=== PATIENT | female | born 1950 | race Caucasian/White ===

== ENCOUNTER → 2017-04-24 | Outpatient (CLI) | payer OTHER | END | disposition home or self-care (01) | LOC: LAB 09:10 | DX: E55.9 Vitamin D deficiency, unspecified (principal); M85.9 Disorder of bone density and structure, unspecified; E83.42 Hypomagnesemia; E88.89 Other specified metabolic disorders ==

== ENCOUNTER 2017-10-24 08:17 | Outpatient (CLI) | payer OTHER | END 2017-10-24 08:27 | disposition home or self-care (01) | LOC: RAD 08:17 → TOM 09:00 | DX: Z12.31 Encounter for screening mammogram for malignant neoplasm of breast (principal); Z87.898 Personal history of other specified conditions; R92.8 Other abnormal and inconclusive findings on diagnostic imaging of breast; J44.9 Chronic obstructive pulmonary disease, unspecified ==

== ENCOUNTER 2017-11-26 07:37 | Outpatient (CLI) | payer OTHER | END 2017-11-26 08:26 | disposition home or self-care (01) | LOC: LAB 07:37 | DX: E55.9 Vitamin D deficiency, unspecified (principal); M85.9 Disorder of bone density and structure, unspecified; E21.3 Hyperparathyroidism, unspecified; M81.8 Other osteoporosis without current pathological fracture; E56.1 Deficiency of vitamin K; E88.89 Other specified metabolic disorders; E83.42 Hypomagnesemia ==

== ENCOUNTER 2017-11-26 09:15 | Outpatient (CLI) | payer OTHER | END 2017-11-26 09:16 | disposition home or self-care (01) | LOC: SONOGRAMA 09:15 | DX: M25.511 Pain in right shoulder (principal) ==

== ENCOUNTER 2017-12-15 13:04 | Outpatient (CLI) | payer OTHER | END 2017-12-15 14:00 | disposition home or self-care (01) | LOC: NUCLEAR 13:04 | DX: M81.0 Age-related osteoporosis without current pathological fracture (principal) ==

== ENCOUNTER 2017-12-30 12:15 | Outpatient (CLI) | payer OTHER | END 2017-12-30 12:28 | disposition home or self-care (01) | LOC: RAD 501 12:15 | DX: M25.511 Pain in right shoulder (principal) ==

== ENCOUNTER 2018-11-17 10:43 | Outpatient (CLI) | payer OTHER | END 2018-11-17 10:50 | disposition home or self-care (01) | LOC: MAMO-SONO 10:43 | DX: Z12.31 Encounter for screening mammogram for malignant neoplasm of breast (principal); Z87.898 Personal history of other specified conditions; R92.8 Other abnormal and inconclusive findings on diagnostic imaging of breast ==

== ENCOUNTER 2018-11-18 08:49 | Outpatient (CLI) | payer OTHER | END 2018-11-18 08:52 | disposition home or self-care (01) | LOC: LAB 08:49 | DX: E78.49 Other hyperlipidemia (principal) ==

== ENCOUNTER 2019-01-01 10:37 | Outpatient (CLI) | payer OTHER | END 2019-01-01 11:10 | disposition home or self-care (01) | LOC: NUCLEAR 10:37 | DX: M81.0 Age-related osteoporosis without current pathological fracture (principal) ==

== ENCOUNTER 2019-01-26 09:20 | Outpatient (CLI) | payer OTHER | END 2019-01-26 09:26 | disposition home or self-care (01) | LOC: LAB 09:20 | DX: M85.88 Other specified disorders of bone density and structure, other site (principal); E88.89 Other specified metabolic disorders; E56.1 Deficiency of vitamin K; E55.9 Vitamin D deficiency, unspecified ==

== ENCOUNTER → 2019-03-08 | Outpatient (CLI) | payer OTHER | END | disposition home or self-care (01) | LOC: RAD 09:43 | DX: M54.5 Low back pain (principal) ==

== ENCOUNTER 2019-03-15 10:27 | Outpatient (CLI) | payer OTHER | END 2019-03-15 10:31 | disposition home or self-care (01) | LOC: MRI 10:27 | DX: M54.5 Low back pain (principal); M54.6 Pain in thoracic spine | CPT/HCPCS: 72148 ==

== ENCOUNTER 2020-01-03 08:02 | Outpatient (CLI) | payer OTHER | END 2020-01-03 15:00 | disposition home or self-care (01) | LOC: LAB 08:02 | DX: D64.89 Other specified anemias (principal); N39.0 Urinary tract infection, site not specified; E78.49 Other hyperlipidemia; R10.84 Generalized abdominal pain; E66.8 Other obesity ==

== ENCOUNTER 2020-01-11 09:57 | Outpatient (CLI) | payer OTHER | END 2020-01-11 10:07 | disposition home or self-care (01) | LOC: MAMO-SONO 09:57 | DX: R92.8 Other abnormal and inconclusive findings on diagnostic imaging of breast (principal); Z12.31 Encounter for screening mammogram for malignant neoplasm of breast ==

== ENCOUNTER 2020-12-23 09:20 | Outpatient (CLI) | payer OTHER | END 2020-12-23 09:26 | disposition home or self-care (01) | LOC: LAB 09:20 | DX: N39.0 Urinary tract infection, site not specified (principal); D64.89 Other specified anemias; E11.65 Type 2 diabetes mellitus with hyperglycemia; E78.49 Other hyperlipidemia; R10.84 Generalized abdominal pain; E66.8 Other obesity; E55.9 Vitamin D deficiency, unspecified ==

== ENCOUNTER 2020-12-28 14:06 | Outpatient (CLI) | payer OTHER | END 2020-12-28 14:07 | disposition home or self-care (01) | LOC: NUCLEAR 14:06 | DX: M81.0 Age-related osteoporosis without current pathological fracture (principal) ==

== ENCOUNTER 2021-01-17 08:53 | Outpatient (CLI) | payer OTHER | END 2021-01-17 09:05 | disposition home or self-care (01) | LOC: MAMO-SONO 08:53 | DX: R92.8 Other abnormal and inconclusive findings on diagnostic imaging of breast (principal); Z12.31 Encounter for screening mammogram for malignant neoplasm of breast ==

== ENCOUNTER → 2021-03-21 | Outpatient (CLI) | payer OTHER | END | disposition home or self-care (01) | LOC: SONOGRAMA 08:34 | DX: R10.84 Generalized abdominal pain (principal) ==

== ENCOUNTER 2021-05-03 10:36 | Outpatient (CLI) | payer OTHER | END 2021-05-03 10:42 | disposition home or self-care (01) | LOC: SONOGRAMA 10:36 | DX: Q62.2 Congenital megaureter (principal) ==

== ENCOUNTER 2022-08-26 09:38 | Outpatient (CLI) | payer OTHER | END 2022-08-26 09:52 | disposition home or self-care (01) | LOC: MAMO-SONO 09:38 | DX: N63.0 Unspecified lump in unspecified breast (principal); I10 Essential (primary) hypertension ==

== ENCOUNTER 2022-08-28 09:55 | Outpatient (CLI) | payer OTHER | END 2022-08-28 10:01 | disposition home or self-care (01) | LOC: SONOGRAMA 09:55 | PROVIDERS: ATTEND Internal Medicine | DX: E04.9 Nontoxic goiter, unspecified (principal) ==

== ENCOUNTER 2023-07-08 13:13 | Outpatient (CLI) | payer OTHER | END 2023-07-08 13:20 | disposition home or self-care (01) | LOC: SONOGRAMA 13:13 → NUCLEAR 07-31 13:15 | PROVIDERS: ATTEND General Practice | DX: E11.69 Type 2 diabetes mellitus with other specified complication (principal); E78.2 Mixed hyperlipidemia; I11.9 Hypertensive heart disease without heart failure; Z68.20 Body mass index [BMI] 20.0-20.9, adult; Z95.1 Presence of aortocoronary bypass graft; E55.9 Vitamin D deficiency, unspecified; E56.8 Deficiency of other vitamins; N18.2 Chronic kidney disease, stage 2 (mild); E11.22 Type 2 diabetes mellitus with diabetic chronic kidney disease; E04.1 Nontoxic single thyroid nodule ==

== ENCOUNTER 2023-12-30 08:01 | Outpatient (CLI) | payer OTHER | END 2023-12-30 08:04 | disposition home or self-care (01) | LOC: SONOGRAMA 08:01 | PROVIDERS: ATTEND Internal Medicine | DX: N63.0 Unspecified lump in unspecified breast (principal) ==

== ENCOUNTER 2024-07-26 07:26 | Outpatient (CLI) | payer OTHER | END 2024-07-26 07:28 | disposition home or self-care (01) | LOC: SONOGRAMA 07:26 | DX: D69.6 Thrombocytopenia, unspecified (principal) ==

== ENCOUNTER 2024-10-27 09:08 | Outpatient (CLI) | payer OTHER | END 2024-10-27 09:10 | disposition home or self-care (01) | LOC: SONOGRAMA 09:08 | DX: E78.2 Mixed hyperlipidemia (principal); E11.69 Type 2 diabetes mellitus with other specified complication; I11.9 Hypertensive heart disease without heart failure; Z68.20 Body mass index [BMI] 20.0-20.9, adult; Z95.1 Presence of aortocoronary bypass graft; E55.9 Vitamin D deficiency, unspecified; E56.8 Deficiency of other vitamins; N18.2 Chronic kidney disease, stage 2 (mild); E11.22 Type 2 diabetes mellitus with diabetic chronic kidney disease; E04.2 Nontoxic multinodular goiter; M81.0 Age-related osteoporosis without current pathological fracture ==